=== PATIENT | male | born 1995 | race African-American/Black ===

== ENCOUNTER 2018-11-14 19:15 | Emergency (ER) | payer OTHER | END 2018-11-14 22:36 | disposition home or self-care (01) | LOC: JERFT 19:15 ==

== ENCOUNTER 2023-06-01 19:03 | Emergency (ER) | payer BC, OTHER ==
[2023-06-01 19:20] VITALS: BP 138/81; PULSE 89; RESP 18; TEMP 98.4; BMI 25.2
== END 2023-06-01 21:33 | disposition home or self-care (01) ==
LOC: JERFT 19:03
DX: K62.5 Hemorrhage of anus and rectum (principal); K64.9 Unspecified hemorrhoids
CPT/HCPCS: 99283-25